=== PATIENT | female | born 1955 ===

== ENCOUNTER 2023-02-22 05:10 | Day surgery (SDC) | payer OTHER ==
[~2023-02-22] VITALS: Ht 160 cm; Wt 70.3 kg
[~2023-02-22 05:10] MED LIST: CRESTOR10 MG PO; LOSARTAN POTASS50 MG PO; ROBITUSSIN30 MG/5 ML PO
[2023-02-22] MEDS ORDERED: TRAM1TAB98 PO (10:32)
== END 2023-02-22 18:15 | disposition home or self-care (01) ==
LOC: CIR.AMB 05:10 → O/R 05:10 → OB/GYN 05:10 → CIR.AMB 18:15 → O/R 18:15
PROVIDERS: ATTEND Obstetrics & Gynecology Gynecology
DX: N81.3 Complete uterovaginal prolapse (principal); N88.8 Other specified noninflammatory disorders of cervix uteri; N72 Inflammatory disease of cervix uteri; N87.9 Dysplasia of cervix uteri, unspecified; Z20.822 Contact with and (suspected) exposure to COVID-19; I10 Essential (primary) hypertension; N81.2 Incomplete uterovaginal prolapse; N88.4 Hypertrophic elongation of cervix uteri